=== PATIENT | female | born 2000 | race Caucasian/White ===

== ENCOUNTER → 2019-04-13 | Outpatient (CLI) | payer OTHER | LOC: COL.RAD 16:50 | DX: J90 Pleural effusion, not elsewhere classified (principal) ==

== ENCOUNTER → 2019-09-04 | Outpatient (CLI) | payer OTHER | LOC: ZCOL.LAB 14:24 | DX: U07.1 COVID-19 (principal) ==

== ENCOUNTER 2021-03-11 13:52 | Emergency (ER) | payer OTHER | END 2021-03-11 14:33 | disposition left against medical advice (07) | LOC: COL.ER 13:52 | DX: T14.90XA Injury, unspecified, initial encounter (principal); X58.XXXA Exposure to other specified factors, initial encounter ==